=== PATIENT | male | born 1995 | race Caucasian/White ===

== ENCOUNTER 2017-08-11 11:05 | Emergency (ER) | payer OTHER ==
[~2017-08-11] VITALS: Ht 177.8 cm; Wt 75.5 kg
[2017-08-11 11:06] VITALS: BP 129/59
[2017-08-11] MEDS ORDERED: PERC5TAB12 PO (13:58)
[2017-08-11] MEDS ORDERED: CYCL10TA PO (13:58)
== END 2017-08-11 14:24 | disposition home or self-care (01) ==
LOC: M ED 11:05
DX: M25.551 Pain in right hip (principal); M54.2 Cervicalgia; M54.9 Dorsalgia, unspecified